=== PATIENT | female | born 1970 | race Caucasian/White ===

== ENCOUNTER 2019-04-18 23:39 | Inpatient (IN) ==
[2019-04-18] MEDS ORDERED: Lidocaine/EPI 1:100k 1% 30 ML VIAL INFILT ONE (23:50)
[2019-04-18] MEDS ORDERED: Tdap (Boostrix) Vaccine 0.5 ML SYRINGE IM ONE (23:50)
[2019-04-18] MEDS ORDERED: *HR* FentaNYL (PF) 100 MCG/2 ML VIAL IM ONE (23:50)
[2019-04-19] MEDS ORDERED: *HR* HYDROmorphone (PF) 1 MG/ML SYRINGE IVP ONE ×3 (01:00→05:53)
[2019-04-19] MEDS ORDERED: Ondansetron 4 MG/2 ML VIAL IVP ONE (01:01)
[2019-04-19] MEDS ORDERED: KETAMINE IVPB ONE ×2 (01:31→04:09)
[2019-04-19] MEDS ORDERED: SODIUM CHLORIDE 0.9% IVPB ONE ×2 (01:31→04:09)
[2019-04-19 05:31] LABS: Basophils % 0.1 %; Hematocrit 36.8 % (35.3-44.9); Hemoglobin 12.9 g/dL (11.5-15.4); Immature Granulocytes % 0.2 % (0-4); Lymphocytes % 7.4 %; Mean Corpuscular HGB Conc 35.1 g/dL (31.6-35.5); Mean Corpuscular Hemoglobin 30.4 pg (28.0-33.3); Mean Corpuscular Volume 86.8 fL (83.0-100.0); Mean Platelet Volume 9.8 fL (9.4-12.4); Monocytes # 0.4 K/mcL (0.0-1.3); Monocytes % 2.6 %; Neutrophils # 12.6 K/mcL (1.6-8.9); Platelet Count 333 K/mcL (140-400); Red Blood Count 4.24 M/mcL (3.82-4.97); Red Cell Distribution Width 13.9 % (11.5-14.5); Segmented Neutrophils % 89.7 %; White Blood Count 14.1 K/mcL (4.3-11.1)
[2019-04-19 05:35] LABS: INR 1.1
[2019-04-19 05:38] LABS: Activated Partial Thrombo Time 31.8 Seconds (26.0-36.0)
[2019-04-19 05:51] LABS: BUN/Creatinine Ratio 17 (6-26); Blood Urea Nitrogen 12 mg/dL (6-20); Calcium 8.6 mg/dL (8.6-10.3); Carbon Dioxide 23 mEq/L (23-29); Chloride 104 mEq/L (98-107); Glucose 141 mg/dL (70-105); Osmolality,Calculated 286 (280-300); Potassium 3.3 mEq/L (3.5-5.1); Sodium 137 mEq/L (136-145); eGFR For African Americans > 60 (> 60); eGFR For Non-African Americans > 60 (> 60)
[2019-04-19] MEDS ORDERED: Acetaminophen 325 MG TABLET PO PRN (08:05)
[2019-04-19] MEDS ORDERED: *HR* HYDROcodone/Acet 5/325 mg TABLET PO PRN (08:05)
[2019-04-19] MEDS ORDERED: Ondansetron 4 MG/2 ML VIAL IVP PRN (08:05)
[2019-04-19] MEDS ORDERED: Naloxone 0.4 MG/ML INJ IVP PRN (08:05)
[2019-04-19] MEDS ORDERED: *HR* OxyCODONE Immed Rel 5 MG TABLET PO ONE (08:28)
[2019-04-19] MEDS ORDERED: Diclofenac Sodium (DR) 50 MG TABLET.DR PO PRN (10:01)
[2019-04-19] MEDS: *HR* OxyCODONE Immed Rel 5 MG TABLET PO PRN ×3 (12:39→21:17)
[2019-04-19] MEDS: Ketorolac 30 MG/ML VIAL IVP SCH ×3 (14:06→23:57)
[2019-04-20] MEDS: *HR* OxyCODONE Immed Rel 5 MG TABLET PO PRN ×2 (01:58→18:51)
[2019-04-20] MEDS: Ketorolac 30 MG/ML VIAL IVP SCH ×4 (05:31→23:20)
[2019-04-20 05:52] LABS: Hematocrit 34.1 % (35.3-44.9); Hemoglobin 11.3 g/dL (11.5-15.4); Mean Corpuscular HGB Conc 33.1 g/dL (31.6-35.5); Mean Corpuscular Hemoglobin 30.5 pg (28.0-33.3); Mean Corpuscular Volume 92.2 fL (83.0-100.0); Mean Platelet Volume 9.8 fL (9.4-12.4); Platelet Count 284 K/mcL (140-400); Red Cell Distribution Width 14.4 % (11.5-14.5); White Blood Count 8.2 K/mcL (4.3-11.1)
[2019-04-20 06:14] LABS: BUN/Creatinine Ratio 17 (6-26); Blood Urea Nitrogen 15 mg/dL (6-20); Calcium 8.7 mg/dL (8.6-10.3); Carbon Dioxide 24 mEq/L (23-29); Chloride 106 mEq/L (98-107); Glucose 124 mg/dL (70-105); Magnesium 2.2 mg/dL (1.6-2.6); Osmolality,Calculated 288 (280-300); Sodium 138 mEq/L (136-145); eGFR For African Americans > 60 (> 60); eGFR For Non-African Americans > 60 (> 60)
[2019-04-20] MEDS ORDERED: *HR* OxyCODONE Immed Rel 5 MG TABLET PO PRN ×2 (07:43→15:10)
[2019-04-20] MEDS ORDERED: *HR* FentaNYL (PF) 100 MCG/2 ML VIAL IVP PRN ×2 (07:43→15:10)
[2019-04-20] MEDS ORDERED: *HR* Promethazine 25 MG/ML VIAL IVP PRN ×2 (07:43→15:10)
[2019-04-20] MEDS ORDERED: Acetaminophen IV 1,000 MG/100 ML INFUS..BTL IVPB ONE ×2 (07:43→15:10)
[2019-04-20] MEDS ORDERED: *HR* Meperidine 25 MG/ML SYRINGE IVP PRN ×2 (07:43→15:10)
[2019-04-20] MEDS ORDERED: *HR* Midazolam HCl 2 MG/2 ML VIAL IVP PRN ×2 (07:43→15:10)
[2019-04-20] MEDS ORDERED: Acetaminophen IV 1,000 MG/100 ML INFUS..BTL ONE (07:58)
[2019-04-20] MEDS ORDERED: *HR* Midazolam HCl 2 MG/2 ML VIAL ONE ×3 (07:58→11:37)
[2019-04-20] MEDS ORDERED: *HR* FentaNYL (PF) 100 MCG/2 ML VIAL ONE ×2 (07:58→11:37)
[2019-04-20] MEDS ORDERED: CeFAZolin Syr 3,000MG/30 ML 3,000 MG/30 ML SYRINGE IVPB ONE (08:00)
[2019-04-20] MEDS ORDERED: Propofol 500 MG/50 ML INFUS..BTL ONE ×4 (08:19→12:44)
[2019-04-20] MEDS ORDERED: Ondansetron 4 MG/2 ML VIAL ONE ×2 (08:40→13:17)
[2019-04-20] MEDS ORDERED: Dexamethasone 4 MG/ML VIAL ONE (08:40)
[2019-04-20] MEDS ORDERED: Tranexamic Acid 1,000 MG/10 ML VIAL ONE (08:46)
[2019-04-20] MEDS ORDERED: *HR* PHENYLEPHRINE 1,000 MCG/10 ML SYRINGE IVP ONE (08:51)
[2019-04-20] MEDS ORDERED: *HR* Phenylephrine 10 MG/ML VIAL ONE ×2 (09:32→12:37)
[2019-04-20] MEDS ORDERED: Ketamine *HR* 500 MG/10 ML MDV ONE (11:37)
[2019-04-20] MEDS ORDERED: ceFAZolin 1,000 MG in Water for inj. (sterile) 10 ML IVP ONE (12:05)
[2019-04-20] MEDS ORDERED: *HR* HYDROMORPHONE 2 MG/ML VIAL ONE (12:31)
[2019-04-20] MEDS: *HR* HYDROmorphone (PF) 1 MG/ML SYRINGE IVP PRN ×2 (14:03→14:13)
[2019-04-20] MEDS ORDERED: Ringers Solution, Lactated 1,000 ML ONE (14:27)
[2019-04-20] MEDS ORDERED: Naloxone 0.4 MG/ML INJ IVP PRN (15:10)
[2019-04-20] MEDS ORDERED: Diclofenac Sodium (DR) 50 MG TABLET.DR PO PRN (15:10)
[2019-04-20] MEDS ORDERED: Acetaminophen 325 MG TABLET PO PRN (15:10)
[2019-04-20] MEDS ORDERED: *HR* HYDROmorphone (PF) 1 MG/ML SYRINGE IVP PRN (15:10)
[2019-04-20] MEDS ORDERED: Ondansetron 4 MG/2 ML VIAL IVP PRN (15:10)
[2019-04-20] MEDS: *HR* HYDROcodone/Acet 5/325 mg TABLET PO PRN ×2 (15:33→20:48)
[2019-04-20 20:23] LABS: Hematocrit 27.8 % (35.3-44.9)
[2019-04-21] MEDS: *HR* OxyCODONE Immed Rel 5 MG TABLET PO PRN ×2 (01:35→08:58)
[2019-04-21 04:20] LABS: Basophils % 0.1 %; Hematocrit 24.2 % (35.3-44.9); Immature Granulocytes % 0.5 % (0-4); Lymphocytes # 2.3 K/mcL (0.6-4.6); Lymphocytes % 16.6 %; Mean Corpuscular HGB Conc 33.1 g/dL (31.6-35.5); Mean Corpuscular Hemoglobin 30.5 pg (28.0-33.3); Mean Corpuscular Volume 92.4 fL (83.0-100.0); Mean Platelet Volume 10.2 fL (9.4-12.4); Monocytes # 0.9 K/mcL (0.0-1.3); Neutrophils # 10.8 K/mcL (1.6-8.9); Platelet Count 287 K/mcL (140-400); Red Blood Count 2.62 M/mcL (3.82-4.97); Red Cell Distribution Width 14.5 % (11.5-14.5); Segmented Neutrophils % 76.8 %
[2019-04-21 04:31] LABS: White Blood Count 14.1 K/mcL (4.3-11.1)
[2019-04-21 04:38] LABS: BUN/Creatinine Ratio 16 (6-26); Blood Urea Nitrogen 15 mg/dL (6-20); Carbon Dioxide 24 mEq/L (23-29); Chloride 107 mEq/L (98-107); Glucose 130 mg/dL (70-105); Osmolality,Calculated 289 (280-300); Potassium 4.2 mEq/L (3.5-5.1); Sodium 138 mEq/L (136-145); eGFR For African Americans > 60 (> 60); eGFR For Non-African Americans > 60 (> 60)
[2019-04-21] MEDS: Ketorolac 30 MG/ML VIAL IVP SCH ×4 (05:43→23:53)
[2019-04-21] MEDS ORDERED: 0.9 % Sodium Chloride 500 ML IVC ONE (08:27)
[2019-04-21] MEDS: Cholecalciferol (D-3) 1,000 UNIT (25MCG) TABLET PO SCH (08:59)
[2019-04-21] MEDS ORDERED: Cholecalciferol (D-3) 1,000 UNIT (25MCG) TABLET PO SCH (09:00)
[2019-04-21 09:32] LABS: Bilirubin,Urine Negative (Negative); Blood,Urine Negative (Negative); Clarity,Urine Clear (Clear); Color,Urine Yellow (Yellow); Glucose,Urine (UA) Normal (Normal); Ketones,Urine Negative (Negative); Leukocyte Esterase,Urine Negative (Negative); Nitrite,Urine Negative (Negative); Protein,Urine Negative (Neg-Trace); Specific Gravity,Urine > 1.030 (1.010-1.025); Urobilinogen,Urine Normal (Normal)
[2019-04-21] MEDS ORDERED: 0.9 % Sodium Chloride 250 ML ONE (16:48)
[2019-04-21] MEDS: *HR* Enoxaparin 30 MG/0.3 ML SYRINGE SQ SCH (17:23)
[2019-04-21 21:17] LABS: Hematocrit 23.4 % (35.3-44.9); Hemoglobin 8.1 g/dL (11.5-15.4)
[2019-04-22] MEDS: Ketorolac 30 MG/ML VIAL IVP SCH ×2 (06:00→11:45)
[2019-04-22 06:13] LABS: Basophils % 0.3 %; Eosinophils # 0.1 K/mcL (0.0-0.6); Eosinophils % 0.5 %; Hematocrit 23.6 % (35.3-44.9); Immature Granulocytes % 0.6 % (0-4); Lymphocytes # 2.3 K/mcL (0.6-4.6); Lymphocytes % 21.3 %; Mean Corpuscular HGB Conc 33.9 g/dL (31.6-35.5); Mean Corpuscular Hemoglobin 30.7 pg (28.0-33.3); Mean Corpuscular Volume 90.4 fL (83.0-100.0); Monocytes # 0.8 K/mcL (0.0-1.3); Monocytes % 7.5 %; Neutrophils # 7.4 K/mcL (1.6-8.9); Nucleated Red Blood Cells 0.2 /100 WBC (0); Platelet Count 225 K/mcL (140-400); Red Blood Count 2.61 M/mcL (3.82-4.97); Red Cell Distribution Width 14.4 % (11.5-14.5); Segmented Neutrophils % 69.8 %; White Blood Count 10.5 K/mcL (4.3-11.1)
[2019-04-22] MEDS: *HR* Enoxaparin 30 MG/0.3 ML SYRINGE SQ SCH (06:23)
[2019-04-22] MEDS: *HR* OxyCODONE Immed Rel 5 MG TABLET PO PRN (06:47)
[2019-04-22] MEDS: Cholecalciferol (D-3) 1,000 UNIT (25MCG) TABLET PO SCH (09:33)
[2019-04-22] MEDS: *HR* HYDROcodone/Acet 5/325 mg TABLET PO PRN (09:40)
[2019-04-22 11:32] VITALS: BP 148/72
== END 2019-04-22 16:44 | disposition home health service (06) | DRG 481 ==
LOC: 3NENU 23:39 → EMEROOARM 23:39 → SUATTDRO 04-19 06:02 → 3NENU 04-19 07:30
PROVIDERS: ADMIT Internal Medicine; ATTEND Internal Medicine